=== PATIENT | female | born 1955 | race Caucasian/White ===

== ENCOUNTER → 2016-09-12 | Outpatient (CLI) | payer OTHER ==
--- NOTE | 2016-09-12 12:25 | RAD ---
DATE: 09/12/16 EXAM: MAMMO LEONEL DIAG LT, BREAST LEFT HISTORY: Abnormal screening mammogram COMPARISON: Screening mammogram from 02/21/15, subsequence left breast mammogram from 02/24/15 and diagnostic left mammogram from 08/05/15. Diagnostic bilateral mammogram from 02/06/16 was also reviewed This study was interpreted with the benefit of Computerized Aided Detection (CAD). TECHNIQUE: 2-D and 3-D CC and MLO views of the left breast and targeted sonographic evaluation of the left breast FINDINGS: Diagnostic left mammogram: Scattered fibroglandular densities are seen in the left breast There is a well-defined tiny subcentimeter nodule in the outer left breast as was seen previously. No additional nodularity architectural distortion is seen. Ultrasound to follow. Left breast ultrasound discussion: Targeted sonographic evaluation of the left breast is performed in the outer left breast. There is a well-defined 1.5 x 1.2 x 1.2 mm cyst at 3:00 position, 3 cm from the nipple. This was not previously identified. There is a ovoid hypoechoic nodule measuring 5.4 x 4.1 x 1.6 mm at 3:00 position, 4 cm from the nipple. This is stable since previous study. IMPRESSION: Stable mammographic nodule seen in the left outer breast. Stable Hypoechoic ovoid 5.4 x 4.1 x 1.6 mm nodule at 3:00 position in the left breast New tiny 1.5 x 1.2 x 1.2 mm cyst at 3:00 position, 3 cm from the nipple. Benign findings. Six-month follow-up bilateral mammogram would place the patient on routine annual schedule. BI-RADS CATEGORY: 2 BENIGN FINDING(S) RECOMMENDED FOLLOW-UP: 6M 6 MONTH FOLLOW-UP PQRS compliance statement: Patient information was entered into a reminder system with a target due date for the next mammogram. Mammography is a sensitive method for finding small breast cancers, but it does not detect them all and is not a substitute for careful clinical examination. A negative mammogram does not negate a clinically suspicious finding and should not result in delay in biopsying a clinically suspicious abnormality. "Our facility is accredited by the [employer] Mammography [employer]."
== END | disposition home or self-care (01) ==
LOC: MAMMO 09:56
PROVIDERS: ATTEND Nurse Practitioner Family
DX: N63 Unspecified lump in breast (principal)
CPT/HCPCS: 76641; G0206; G0279; 77061; 77065

== ENCOUNTER → 2017-02-11 | Outpatient (CLI) | payer OTHER ==
--- NOTE | 2017-02-11 15:03 | RAD ---
DATE: 02/11/17 EXAM: MAMMO LEONEL SCREENING BILATERAL, family history of breast cancer HISTORY: Routine screening COMPARISON: Bilateral screening mammogram from 02/06/16 This study was interpreted with the benefit of Computerized Aided Detection (CAD). TECHNIQUE: Routine 2-D and 3-D screening mammogram of both breasts are obtained FINDINGS: Breast Density: SCATTERED The breast parenchyma shows scattered fibroglandular densities. Breast parenchyma level B. . No suspicious clustered microcalcifications, focal asymmetric densities or masses are seen. Stable benign calcifications are seen in both breasts. The skin and nipples are intact IMPRESSION: Benign findings BI-RADS CATEGORY: 2 BENIGN FINDING(S) RECOMMENDED FOLLOW-UP: 12M 12 MONTH FOLLOW-UP PQRS compliance statement: Patient information was entered into a reminder system with a target due date for the next mammogram. Mammography is a sensitive method for finding small breast cancers, but it does not detect them all and is not a substitute for careful clinical examination. A negative mammogram does not negate a clinically suspicious finding and should not result in delay in biopsying a clinically suspicious abnormality. "Our facility is accredited by the [employer] Mammography [employer]."
== END | disposition home or self-care (01) ==
LOC: MAMMO 09:27
PROVIDERS: ATTEND Nurse Practitioner Family
DX: Z12.31 Encounter for screening mammogram for malignant neoplasm of breast (principal)
CPT/HCPCS: 77063; G0202; 77067

== ENCOUNTER → 2018-02-27 | Outpatient (CLI) | payer OTHER ==
--- NOTE | 2018-02-28 10:50 | RAD ---
DATE: 02/27/2018 EXAM: MAMMO LEONEL SCREENING BILATERAL HISTORY: Routine screening COMPARISON: 02/11/2017 This study was interpreted with the benefit of Computerized Aided Detection (CAD). Breast Density: SCATTERED The breast parenchyma shows scattered fibroglandular densities. Breast parenchyma level B. FINDINGS: 2-D and 3-D tomosynthesis imaging was performed in CC and MLO projections. No new or enlarging breast densities are seen. Benign type calcifications are present. No suspicious microcalcifications have developed. IMPRESSION: Stable mammograms without evidence of malignancy. BI-RADS CATEGORY: 2 BENIGN FINDING(S) RECOMMENDED FOLLOW-UP: 12M 12 MONTH FOLLOW-UP PQRS compliance statement: Patient information was entered into a reminder system with a target due date for the next mammogram. Mammography is a sensitive method for finding small breast cancers, but it does not detect them all and is not a substitute for careful clinical examination. A negative mammogram does not negate a clinically suspicious finding and should not result in delay in biopsying a clinically suspicious abnormality. "Our facility is accredited by the [employer] Mammography [employer]."
== END | disposition home or self-care (01) ==
LOC: MAMMO 09:27
PROVIDERS: ATTEND Physician Assistant Medical
DX: Z12.31 Encounter for screening mammogram for malignant neoplasm of breast (principal)
CPT/HCPCS: 77063; 77067

== ENCOUNTER → 2018-08-27 | Outpatient (CLI) | payer OTHER ==
--- NOTE | 2018-08-27 14:16 | RAD ---
7 views lumbar spine without comparison for lumbar back pain, right sciatica, lumbago. FINDINGS: There is no fracture or acute osseous or alignment abnormality of lumbar spine. Severe degenerative changes are seen at L5-S1 with vacuum phenomenon and bulky facet arthrosis. Moderate changes are seen at L4-5. Vacuum phenomenon also present at T11-12 and T12-L1. Alignment is maintained in flexion and extension. Oblique views reveal intact pars interarticulari bilaterally. There is aortoiliac atherosclerosis. IMPRESSION: 1. No acute osseous or alignment abnormality of the lumbar spine. 2. Severe degenerative changes at L5-S1. 3. Aortoiliac atherosclerosis. Electronically signed by: Peter Cash MD (08/27/2018 2:13 PM) [id number]
== END | disposition home or self-care (01) ==
LOC: RAD 09:44
PROVIDERS: ATTEND Chiropractor
DX: M47.817 Spondylosis without myelopathy or radiculopathy, lumbosacral region (principal); I70.0 Atherosclerosis of aorta; M99.03 Segmental and somatic dysfunction of lumbar region
CPT/HCPCS: 72114

== ENCOUNTER → 2019-03-17 | Outpatient (CLI) | payer OTHER ==
--- NOTE | 2019-03-18 08:23 | RAD ---
DATE: 03/17/2019 EXAM: MAMMO LEONEL SCREENING BILATERAL HISTORY: Routine screening COMPARISON: 09/12/2016, 02/11/2017, 02/27/2018 mammographic exams This study was interpreted with the benefit of Computerized Aided Detection (CAD). Breast Density: SCATTERED The breast parenchyma shows scattered fibroglandular densities. Breast parenchyma level B. FINDINGS: No suspicious calcifications, masses, or distortion. There is a small asymmetry at the posterior aspect of the left inner breast on CC projection measuring up to 0.3 cm in diameter located 8.5 cm from the nipple. This may are present summation of breast parenchyma. IMPRESSION: Small new asymmetry at the posterior left inner breast. BI-RADS CATEGORY: 0 INCOMPLETE: NEEDS ADDITIONAL IMAGING EVALUATION AND/OR PRIOR MAMMOGRAMS FOR COMPARISON. RECOMMENDED FOLLOW-UP: ADD ADDITIONAL IMAGING. Spot compression of the left posterior inner breast in the CC projection recommended. Ultrasound may be needed. PQRS compliance statement: Patient information was entered into a reminder system with a target due date for the next mammogram. Mammography is a sensitive method for finding small breast cancers, but it does not detect them all and is not a substitute for careful clinical examination. A negative mammogram does not negate a clinically suspicious finding and should not result in delay in biopsying a clinically suspicious abnormality. "Our facility is accredited by the [employer] Mammography [employer]."
== END | disposition home or self-care (01) ==
LOC: MAMMO 09:46
PROVIDERS: ATTEND Physician Assistant Medical
DX: Z12.31 Encounter for screening mammogram for malignant neoplasm of breast (principal); N64.89 Other specified disorders of breast
CPT/HCPCS: 77063; 77067

== ENCOUNTER → 2019-03-31 | Outpatient (CLI) | payer OTHER ==
--- NOTE | 2019-04-01 18:54 | RAD ---
Study: 1. 2-D digital diagnostic mammography-left breast 2. Left breast diagnostic ultrasound INDICATION: Follow-up evaluation of a left breast asymmetry. COMPARISON: Screening mammogram 03/17/2019. TECHNIQUE: 2-D digital spot compression diagnostic views were obtained of the left breast. Subsequently, diagnostic left breast sonography was performed. FINDINGS: Breast Tissue Density B :The breast tissue is composed of mixed fatty and fibroglandular tissue. Upon spot compression, a very small mass persists within the posterior aspect the left breast at approximately the 10:00 location. This will be further evaluated with sonography. Targeted sonography is performed of the left breast between 8 and 10:00. Approximately 6 cm from the nipple, a rounded, avascular, hypoechoic focus is identified that measures up to 10 mm. Though more superficial in location relative to the mammographic finding, this likely represents the finding due to its size and configuration. The sonographic appearance in conjunction with the mammogram appearance is not concerning for malignancy. IMPRESSION: No mammographic or sonographic finding within the evaluated left breast that is concerning for malignancy. BI-RADS Category 2: Benign. Recommendation: Routine screening mammography in one year. Patient information is entered into the reminder system with a target due date for the next screening mammogram. The patient will receive a reminder. "Our facility is accredited by the [employer] Mammography Program."
== END | disposition home or self-care (01) ==
LOC: MAMMO 13:49
PROVIDERS: ATTEND Physician Assistant Medical
DX: R92.8 Other abnormal and inconclusive findings on diagnostic imaging of breast (principal)
CPT/HCPCS: 76641; 77065

== ENCOUNTER → 2019-04-08 | Outpatient (CLI) | payer OTHER ==
--- NOTE | 2019-04-08 10:13 | RAD ---
EXAM: Lumbar spine, 3 views. HISTORY: Pain. COMPARISON: None. FINDINGS: 3 views of the lumbar spine are obtained. There is instrumented posterior spinal fusion and laminectomy decompression at L4-L5. There is grade 1 anterolisthesis at this level. There is degenerative endplate remodeling with disc space narrowing, osteophytosis and vacuum phenomenon at L5-S1. There is endplate Schmorl's node formation at multiple thoracic and upper and mid and lumbar levels. There is advanced facet arthropathy at the lumbosacral junction. IMPRESSION: 1. Instrumented fusion at L4-L5. There is grade 1 anterolisthesis at this level. 2. Multilevel degenerative change, primarily at L5-S1. Electronically signed by: Pau Sanches MD (04/08/2019 10:10 AM) [facility]
== END | disposition home or self-care (01) ==
LOC: RAD 09:03
PROVIDERS: ATTEND Neurological Surgery
DX: M43.16 Spondylolisthesis, lumbar region (principal); M47.817 Spondylosis without myelopathy or radiculopathy, lumbosacral region; M46.87 Other specified inflammatory spondylopathies, lumbosacral region; Z98.1 Arthrodesis status
CPT/HCPCS: 72100

== ENCOUNTER → 2019-04-23 | Outpatient (CLI) | payer OTHER ==
--- NOTE | 2019-04-24 08:28 | RAD ---
Three-view left rib detail series and PA view chest x-ray Clinical indications: Left-sided chest pain. FINDINGS: No acute left rib fracture is evident. Chest x-ray demonstrates no acute lung infiltrate or pleural effusion or pulmonary edema or pneumothorax. The heart size and pulmonary vasculature and mediastinum and both dash are unremarkable. IMPRESSION: No acute left rib fracture. Electronically signed by: Julio César Lopez MD (04/24/2019 8:25 AM) [facility]
== END | disposition home or self-care (01) ==
LOC: DXRAD 17:04
PROVIDERS: ATTEND Registered Nurse
DX: R07.9 Chest pain, unspecified (principal)
CPT/HCPCS: 71101

== ENCOUNTER → 2020-03-18 | Outpatient (CLI) | payer MEDICARE, OTHER ==
--- NOTE | 2020-03-18 11:29 | RAD ---
DATE: 03/18/2020 9:30 AM EXAM: MAMMO LEONEL SCREENING BILATERAL HISTORY: Screening COMPARISON: 03/17/2019 Bilateral CC and MLO views of the breasts were performed. Bilateral breast tomosynthesis was performed in CC and MLO projections. This study was interpreted with the benefit of Computerized Aided Detection (CAD). FINDINGS: Breast Density: SCATTERED The breast parenchyma shows scattered fibroglandular densities. Breast parenchyma level B No suspicious masses, microcalcifications or architectural distortion is present to suggest malignancy in either breast. The visualized axillae are unremarkable. IMPRESSION: No mammographic evidence of malignancy. BI-RADS CATEGORY: 1 NEGATIVE RECOMMENDED FOLLOW-UP: 12M 12 MONTH FOLLOW-UP Annual screening mammography is recommended, unless clinically indicated sooner based on symptoms or change in physical exam. PQRS compliance statement: Patient information was entered into a reminder system with a target due date for the next mammogram. Mammography is a sensitive method for finding small breast cancers, but it does not detect them all and is not a substitute for careful clinical examination. A negative mammogram does not negate a clinically suspicious finding and should not result in delay in biopsying a clinically suspicious abnormality. "Our facility is accredited by the [employer] Mammography Program."
== END ==
LOC: MAMMO 09:08
PROVIDERS: ATTEND Physician Assistant Medical
DX: Z12.31 Encounter for screening mammogram for malignant neoplasm of breast (principal)
CPT/HCPCS: 77063; 77067

== ENCOUNTER → 2020-12-14 | Outpatient (CLI) | payer MEDICARE, OTHER ==
--- NOTE | 2020-12-14 17:14 | RAD ---
XR LUMBAR SPINE 4+V 12/14/2020 5:04 PM Reason: LOW BACK PAIN WITH LEFT LEG RADICULOPATHY Comparison: Lumbar spine 04/08/2019 Technique: AP, obliques, lateral lumbosacral views lumbar spine. Findings: There are 5 nonrib-bearing vertebral bodies in the lumbar spine. Redemonstration of posterior manuel and screw fixation at the L4-L5 level. There is an interval 20 percent height loss of the L4 vertebral b velasquez. There is also interval 20 percent height loss of the anterior L2 vertebral body. No definite ret ropulsed fragment. Similar grade 1 anterolisthesis at L4-L5. Grade 1 retrolisthesis of L3 on L4. Rede monstration of left hemilaminectomy at L4-L5. Similar degenerative disc space narrowing and marginal osteophytosis throughout the lumbar spine. Similar facet joint hypertrophic change. Impression: 1. Interval 20 percent height loss of the anterior L2 and L4 vertebral bodies representing age indete rminant compression fractures. MRI of the lumbar spine could help determine chronicity. 2. New grade 1 retrolisthesis of L3 on L4. Electronically signed by: Franklin Lira (12/14/2020 5:12 PM) [id number]
== END ==
LOC: RAD 13:50
PROVIDERS: ATTEND Physician Assistant Medical
DX: M43.16 Spondylolisthesis, lumbar region (principal); M48.56XA Collapsed vertebra, not elsewhere classified, lumbar region, initial encounter for fracture; M48.061 Spinal stenosis, lumbar region without neurogenic claudication; M25.78 Osteophyte, vertebrae
CPT/HCPCS: 72110

== ENCOUNTER 2021-03-25 20:03 | Emergency (ER) | payer MEDICARE, OTHER ==
[~2021-03-25] VITALS: Ht 165.1 cm; Wt 82.0 kg
--- NOTE | 2021-03-25 20:05 | PHYS DOC ---
General Adult HPI: HPI: ".. I ve had this cough.. it will not go away.. I seen my Gloria.. and went back again to day they started me on antibiotic... for UTI... but this cough will not stop.... they had me on prednisone.. that usually helps..." Patient is a 66 year old female who presents with above hx and complaints dyspnea, cough Pt. Follows with Gloria. Patient has completed COVID vaccinations with a booster.. Has had flu vaccination as well. Patient c urrently on prednisone, amoxicillin, and Tessalon Perles. Patient does however continue to smoke. Patient has had a history of past COPD exacerbations. No recent travel. No severe ill contacts. Review of Systems: Review of Systems: Constitutional: Subjective complaints of fever or chills Eyes: Denies change in visual acuity HENT: History of nasal congestion and a sore throat from too much coughing Respiratory: History of nonproductive cough and shortness of breath Cardiovascular: Denies chest pain or edema GI: Denies abdominal pain, nausea, vomiting, bloody stools or diarrhea : Denies dysuria Musculoskeletal: Denies back pain or joint pain Integument: Denies rash Neurologic: Denies headache, focal weakness or sensory changes Endocrine: Denies polyuria or polydipsia Lymphatic: Denies swollen glands Psychiatric: Denies depression or anxiety Family History: Family History: Noncontributory to presentation Current Medications: Current Meds: See nursing for home medications Allergies: Allergies: No known drug allergies Physical Exam: PE: Constitutional: Moderate acute distress, non-toxic appearance. [] HENT: Normocephalic, atraumatic, bilateral external ears normal, oropharynx moist, posterior nasal drainage, no oral exudates, nose swollen turbinates and clear rhinorrhea. Interests Eyes: PERRLA, EOMI, conjunctiva normal, no discharge. [] Neck: Normal range of motion, no tenderness, supple, no stridor. [] Cardiovascular:Heart rate regular rhythm, no murmur [] tachycardia, PMI to left Lungs & Thorax: Bilateral breath sounds equal apex with scattered wheezing throughout on auscultation [] Abdomen: Bowel sounds normal, soft, no tenderness, no masses, no pulsatile masses. Obese. Skin: Warm, dry, no erythema, no rash. Poor turgor. Back: No tenderness, no CVA tenderness. [] Extremities: No tenderness, no cyanosis, no clubbing, ROM intact, no edema. [No cording appreciated in legs Neurologic: Alert and oriented X 3, normal motor function, normal sensory function, no focal deficits noted. [] Psychologic: Affect anxious, judgement normal, mood normal. [] EKG: EKG: My interpretation EKG shows a sinus rhythm at 85 bpm. No acute morphology. Does have left axis deviation. Time of this EKG is 2137 hrs. [] Radiology/Procedures: Radiology/Procedures: [][address] [address] IMAGING REPORT Signed PATIENT: ISAIAH KEENANOUNT: [id number] : 1955 LOCATION: ER AGE: 66 SEX: F EXAM STATUS: PRE ER ORD. PHYSICIAN: KRISTA ROBERSON MD REASON: dyspneas PROCEDURE: PORTABLE CHEST 1V AP chest. HISTORY: Dyspnea AP view was taken of the chest. There is mild atelectasis at the left costophrenic angle or minimal infiltrate. No other infiltrate is noted. Heart is normal in size. There is no effusion. IMPRESSION: 1. Mild atelectasis or infiltrate near the left gastric angle. 2. No other acute infiltrates. Electronically signed by: Luke Delacruz MD (03/25/2021 9:29 PM) [facility] DICTATED AND SIGNED BY: LUKE DELACRUZ MD DATE: 03/25/212127 CC: KRISTA ROBERSON MD; JORGE LAMB ~MTH0 0 Heart Score: C/O Chest Pain: No HEART Score for Chest Pain: HEART Score for Chest Pain Response (Comments) Value History Slighlty/Non-Suspicious 0 ECG Normal 0 Age > 65 2 Risk Factors 1 or 2 Risk Factors 1 Troponin < Normal Limit 0 Total 3 Risk Factors: Risk Factors: DM, Current or recent (<one month) smoker, HTN, HLP, family history of CAD, obesity. Risk Scores: Score 0 - 3: 2.5% MACE over next 6 weeks - Discharge Home Score 4 - 6: 20.3% MACE over next 6 weeks - Admit for Clinical Observation Score 7 - 10: 72.7% MACE over next 6 weeks - Early Invasive Strategies Course & Med Decision Making: Course & Med Decision Making Pertinent Labs and Imaging studies reviewed. (See chart for details) Discussed presentation, testing and tx. plan with patient. Patient elects not to be admitted if at all possible. Patient is going to go home on his Zithromax 250 mg daily for 5 days. Continue her prednisone continue her Bactrim. Follow-up primary care. Return if any concerns. Patient presents COVID precautions. Wear a mask covering nose and mouth at all times. Must return if no improvement. May need admission of IV antibiotics if no improvement. Return if any concerns. Patient strongly encouraged to stop smoking. Impression: 1. COPD exacerbation 2. Lt. Lower Pneumonia 3. Elevated Segs=74 4. Tobacco use [] Dragon Disclaimer: Dragon Disclaimer: This electronic medical record was generated, in whole or in part, using a voice recognition dictation system. Departure Departure: Referrals: JORGE LAMB (PCP) Scripts Azithromycin (ZITHROMAX) 250 Mg Tablet 250 MG PO DAILY for ANTI-BIOTIC for 5 Days, #5 TAB 0 Refills Prov: KRISTA ROBERSON MD 03/25/21 Dragon Disclaimer This chart was dictated in whole or in part using Voice Recognition software in a busy, high-work load, and often noisy Emergency Department environment. It may contain unintended and wholly unrecognized errors or omissions. KRISTA ROBERSON MD Mar 25, 2021 20:05
[2021-03-25] MEDS ORDERED: IV RINGERS SOLUTION,LACTATED 1,000 ML IV SCH (20:15)
[2021-03-25 21:26] LABS: BASO # 0.1 x10^3/uL (0.0-0.2); BASO % 1 % (0-3); EOS % 0 % (0-3); HEMATOCRIT 41.2 % (36.0-47.0); HEMOGLOBIN 13.9 g/dL (12.0-15.5); LYMPH # 1.7 x10^3/uL (1.0-4.8); LYMPH % 16 % (24-48); MEAN CORPUSCULAR HEMOGLOBIN 30 pg (25-35); MEAN CORPUSCULAR HGB CONC 34 g/dL (31-37); MEAN CORPUSCULAR VOLUME 90 fL (79-100); MONO # 0.5 x10^3/uL (0.0-1.1); MONO % 5 % (0-9); NEUT # 8.3 x10^3uL (1.8-7.7); NEUT % 78 % (31-73); PLATELET COUNT 278 x10^3/uL (140-400); RED BLOOD COUNT 4.59 x10^6/uL (3.50-5.40); RED CELL DISTRIBUTION WIDTH 14.4 % (11.5-14.5); WHITE BLOOD COUNT 10.6 x10^3/uL (4.0-11.0)
--- NOTE | 2021-03-25 21:31 | RAD ---
AP chest. HISTORY: Dyspnea AP view was taken of the chest. There is mild atelectasis at the left costophrenic angle or minimal i nfiltrate. No other infiltrate is noted. Heart is normal in size. There is no effusion. IMPRESSION: 1. Mild atelectasis or infiltrate near the left gastric angle. 2. No other acute infiltrates. Electronically signed by: Luke Delacruz MD (03/25/2021 9:29 PM) [facility]
[2021-03-25 21:35] LABS: CALCIUM 8.8 mg/dL (8.5-10.1); CREATININE 0.5 mg/dL (0.6-1.0); GFR 123.4; POTASSIUM 3.7 mmol/L (3.5-5.1)
[2021-03-25 21:37] LABS: AMPHETAMINE/METHAMPHETAMINE NEG (NEG); BARBITURATES NEG (NEG); BENZODIAZEPINES NEG (NEG); CANNABINOIDS NEG (NEG); COCAINE NEG (NEG); METHADONE NEG (NEG); OPIATES NEG (NEG); PHENCYCLIDINE NEG (NEG)
[2021-03-25 21:40] LABS: CLARITY,URINE CLEAR; COLOR,URINE YELLOW
[2021-03-25 21:41] LABS: BACTERIA,URINE FEW /HPF (0-FEW); BILIRUBIN,URINE NEG (NEG); GLUCOSE,URINE NEG (NEG); NITRITE,URINE NEG (NEG); SQUAMOUS EPITHELIAL CELL,UR MOD /LPF; UROBILINOGEN,URINE 0.2 mg/dL (0.2 mg/dL)
[2021-03-25 21:48] LABS: ALBUMIN 3.7 g/dL (3.4-5.0); DIRECT BILIRUBIN 0.1 mg/dL (0.0-0.2); TOTAL BILIRUBIN 0.3 mg/dL (0.2-1.0); TOTAL PROTEIN 6.5 g/dL (6.4-8.2)
[2021-03-25 21:49] LABS: INFLUENZA A PATIENT NEGATIVE (NEGATIVE); INFLUENZA B PATIENT NEGATIVE (NEGATIVE)
[2021-03-25 21:56] LABS: % BANDS 5 % (0-9); % BASOS 1 % (0-3); % LYMPHS 15 % (24-48); % MONOS 5 % (0-10); % SEGS 74 % (35-66); PLT ESTIMATE ADEQUATE (ADEQUATE)
[2021-03-25 22:18] VITALS: BP 106/68
--- NOTE | 2021-03-25 22:22 | EKG ---
[address] [address] Test Date: 2021-03-25 Test Time: 21:37:47 Pat Name: ISAIAH KEENAN Department: Room: Gender: F Rug Inspector: : 1955 Requested By: KRISTA ROBERSON Order Number: [id number] Reading MD: Cody Padron Measurements Intervals [place] Rate: 85 P: -41 [place]: 150 QRS: -8 QRSD: 92 T: 63 QT: 388 QTc: 462 Interpretive Statements SINUS RHYTHM LEFTWARD AXIS Electronically Signed On 03-26-2021 7:12:25 FIELD PIPELINES SUPERVISOR by Cody Padron
[2021-03-25] MEDS ORDERED: AZIT250T PO (22:38)
[2021-03-25] MEDS ORDERED: AZITHROMYCIN 250 MG TABLET. PO ONE (23:00)
[2021-03-25] MEDS ORDERED: methylPREDNISolone SOD SUCC PF 125 MG/2 ML VIAL. IV ONE (23:00)
== END 2021-03-25 22:50 | disposition home or self-care (01) ==
LOC: ER 20:03
DX: J44.1 Chronic obstructive pulmonary disease with (acute) exacerbation (principal); J18.9 Pneumonia, unspecified organism; D72.828 Other elevated white blood cell count; Z72.0 Tobacco use; Z20.822 Contact with and (suspected) exposure to COVID-19
CPT/HCPCS: 71045; 80048; 80076; 80307; 81001; 82550; 83690; 83735; 83880; 84443; 84484; 85007; 85025; 85379; 85610; 85730; 87040; 87426; 87804; 93005; 96361; 96374; 99285; C9803; J2930; J7120; U0003

== ENCOUNTER → 2021-04-17 | Outpatient (CLI) | payer MEDICARE, OTHER ==
[2021-03-25 22:18] VITALS: BP 106/68
[~2021-04-17] MED LIST: AZIT250T PO
--- NOTE | 2021-04-18 10:48 | RAD ---
Bilateral digital screening 2-D and 3-D (digital breast tomosynthesis) mammogram: Reason for examination: Routine screening. Comparison: Mammograms from 03/17/2019 and 03/18/2020. Interpretation was made with the benefit of CAD. FINDINGS: Breast density: Category B. There are scattered areas of fibroglandular density. No suspicious breast mass, malignant appearing calcifications, or architectural distortion is seen. IMPRESSION: No evidence of malignancy. Assessment: BI-RADS 1. Negative. Recommendation: Routine screening mammograms. The patient will receive a letter with the results in the mail. Patient information will be entered i nto the mammography reminder system with a target recall date for the next mammogram. A reminder lemuel er will be generated. Electronically signed by: Andie Bean MD (04/18/2021 10:45 AM) [id number]
== END ==
LOC: MAMMO 11:21
PROVIDERS: ATTEND Physician Assistant Medical
DX: Z12.31 Encounter for screening mammogram for malignant neoplasm of breast (principal)
CPT/HCPCS: 77063; 77067

== ENCOUNTER 2021-04-30 11:21 | Emergency (ER) | payer MEDICARE, OTHER ==
[~2021-04-30] VITALS: Ht 165.1 cm; Wt 82.0 kg
[2021-04-30 11:21] VITALS: BP 151/87
--- NOTE | 2021-04-30 11:53 | PHYS DOC ---
Past History Past Medical History: Hypertension Past Surgical History: Lumbar Laminectomy, Tonsillectomy, Other Additional Past Surgical Histo: CATARACTS, L SHOULDER Alcohol Use: Occasionally Adult General Chief Complaint Chief Complaint: MECHANICAL FALL HPI HPI Patient is a 66-year-old female presenting status post fall. Reports onset was 3 days ago, with caring household items and bilateral upper extremities when she suffered a mechanical fall forwards landing on right anterior face. Reports she did not lose consciousness, no nausea or vomit, change in vision or other concerning symptoms but patient does report suffering from a nosebleed that resolved with direct pressure after 10 minutes. States she has been icing it ever since with use of Tylenol with moderate improvement in pain and swelling. Nonetheless, ongoing pain, development of a black eye and red eye on the right side concerned her for potential head and/or maxillofacial injury requiring further intervention. She has history of high blood pressure for which she is on an EDUAR inhibitor, no other known medical issues, no blood thinning medications. She has no change in motor or sensory or neuro function Review of Systems Review of Systems Fourteen body systems of review of systems have been reviewed. See HPI for pertinent positives and negative responses, other nation all other systems are negative, non-pertinent or non-contributory Allergies Allergies Allergies Coded Allergies Type Severity Reaction Last Updated Verified No Known Drug Allergies 03/25/21 No Physical Exam Physical Exam Constitutional: Well developed, well nourished, no acute distress, non-toxic appearance. HENT: Normocephalic, patient does have obvious right ocular trauma with mild s oft tissue edema and ecchymosis around orbit without any palpable depressions or abnormalities, bilateral external ears normal, no blake sign, oropharynx moist, no oral exudates, nose normal. Eyes: PERRLA, EOMI, right eye subconjunctival hemorrhage present, no discharge. Neck: Normal range of motion, no tenderness, supple, no stridor. Cardiovascular: Heart rate regular, sinus rhythm, no murmurs rubs or gallops Lungs & Thorax: Bilateral breath sounds clear to auscultation Abdomen: Bowel sounds normal, soft, no tenderness, no masses, no pulsatile masses. Nonsurgical abdomen, no peritoneal signs Skin: Warm, dry, no erythema, no rash. Back: No tenderness, no CVA tenderness. Extremities: No tenderness, no cyanosis, no clubbing, ROM intact, no edema. Neurologic: Alert and oriented X 3, cranial nerves II through XII intact, normal motor & sensory function, no focal deficits noted. Psychologic: Affect normal, judgement normal, mood normal. Current Patient Data Vital Signs Vital Signs Date Time Temp Pulse Resp B/P (MAP) Pulse Ox O2 Delivery O2 Flow Rate FiO2 04/30/21 11:21 98.4 87 18 151/87 (108) 97 Room Air Vital Signs Date Time Temp Pulse Resp B/P (MAP) Pulse Ox O2 Delivery O2 Flow Rate FiO2 04/30/21 11:21 98.4 87 151/87 (108) 97 04/30/21 11:21 18 Room Air EKG EKG [] Radiology/Procedures Radiology/Procedures CT Head W/O Contrast: History: Reason: FALL, RIGHT ORBITAL BRUISING, SWELLING, RT FACIAL NUMBNESS / Spl. Instructions: / History: Comparison: none Axial images were obtained without contrast. The pierson and white matter appears normal and symmetrical for the patients age. There is no mass effect, extraaxial fluid collections or hydrocephalus. There is no gross bleed. There is no focal loss of pierson-white matter distinction to suggest acute ischemia, i.e. stroke. Impression: No acute findings. End of impression CT maxillofacial without contrast Axial helical images of the face were obtained without contrast. Axial, coronal and coronal reconstruction was performed. FINDINGS: There is a 5 mm depressed fracture of the floor of the right orbit. There is a fracture of the lateral wall of the right orbit which anteriorly is depressed. The nasal septum is mildly deviated to the right. The ostiomeatal complex is occluded on the right and the right maxillary sinus is mostly opacified with blood. The paranasal sinuses are clear. The visualized osseous structures appear intact. The orbits appear normal. Impression: 1. Depressed fracture of the right orbital floor. There is no CT evidence of entrapment however clinical correlation suggested. 2. Fracture of the lateral wall of the right maxillary sinus and near opacification of the right maxillary sinus with blood. Heart Score C/O Chest Pain: No Risk Factors: Risk Factors: DM, Current or recent (<one month) smoker, HTN, HLP, family history of CAD, obesity. Risk Scores: Risk Factors: DM, Current or recent (<one month) smoker, HTN, HLP, family history of CAD, obesity. Course & Med Decision Making Course & Med Decision Making ABCs unremarkable HPI physical exam and comprehensive ER work-up concerning for depressed right orbit and right maxillary fractures [facility] maxillofacial surgeon contacted and case reviewed, no need for emergent transfer for immediate intervention but close outpatient follow-up is advised with supportive care practices and pain control recommended I updated patient on entirety of ER work-up, findings, and discussion with maxillofacial surgeon with good understanding. She was amenable to plan of care as stated. Denied any narcotic pain medications to go home on. Patient discharged with strict return precautions Dragon Disclaimer Dragon Disclaimer This electronic medical record was generated, in whole or in part, using a voice recognition dictation system. Departure Departure: Impression: Primary Impression: Fall Additional Impressions: Right orbit fracture Maxillary sinus fracture Disposition: HOME / SELF CARE / HOMELESS Condition: STABLE Referrals: JORGE LAMB (PCP) Additional Instructions: As discussed prior to ER departure, your vitals physical exam and comprehensive ER work-up were nonconcerning for any emergent or surgical issues. I discussed your findings today that included depressed fracture of your right orbit in addition to fracture of right maxillary sinus. Your case was reviewed with maxillofacial surgeons at [facility] and joint decision among all to discharge you home with close outpatient follow-up. As such, it is pertinent that you contact their office first thing in the morning at [phone] to review ER visit today and need for close outpatient follow-up. Continue to provide supportive care practices to yourself that should include ice, ibuprofen and/or Tylenol for pain as needed. If any concerning signs or symptoms present prior to outpatient follow-up please do not hesitate to come back for repeat evaluation. It was a pleasure to take care of you and I wish you the best going forward Problem Qualifiers WENDIE WOODS DO Apr 30, 2021 11:53
--- NOTE | 2021-04-30 12:25 | RAD ---
CT Head W/O Contrast: History: Reason: FALL, RIGHT ORBITAL BRUISING, SWELLING, RT FACIAL NUMBNESS / Spl. Instructions: / H istory: Comparison: none Axial images were obtained without contrast. The pierson and white matter appears normal and symmetrical for the patients age. There is no mass effe ct, extraaxial fluid collections or hydrocephalus. There is no gross bleed. There is no focal loss of pierson-white matter distinction to suggest acute ischemia, i.e. stroke. Impression: No acute findings. End of impression CT maxillofacial without contrast Axial helical images of the face were obtained without contrast. Axial, coronal and coronal reconstru ction was performed. FINDINGS: There is a 5 mm depressed fracture of the floor of the right orbit. There is a fracture of the latera l wall of the right orbit which anteriorly is depressed. The nasal septum is mildly deviated to the right. The ostiomeatal complex is occluded on the right an d the right maxillary sinus is mostly opacified with blood. The paranasal sinuses are clear. The visu alized osseous structures appear intact. The orbits appear normal. Impression: 1. Depressed fracture of the right orbital floor. There is no CT evidence of entrapment however clini keon correlation suggested. 2. Fracture of the lateral wall of the right maxillary sinus and near opacification of the right maxi llary sinus with blood. End of impression PQRS Compliance Statement: One or more of the following individualized dose reduction techniques were utilized for this examinat ion: 1. Automated exposure control 2. Adjustment of the mA and/or kV according to patient size 3. Use of iterative reconstruction technique Electronically signed by: Jean Pierre Angulo III, MD (04/30/2021 12:23 PM) [facility]
== END 2021-04-30 14:08 | disposition home or self-care (01) ==
LOC: ER 11:21
DX: S02.85XA Fracture of orbit, unspecified, initial encounter for closed fracture (principal); S02.40CA Maxillary fracture, right side, initial encounter for closed fracture; I10 Essential (primary) hypertension; W18.39XA Other fall on same level, initial encounter; Y93.89 Activity, other specified; Y92.89 Other specified places as the place of occurrence of the external cause; Y99.8 Other external cause status
CPT/HCPCS: 70450; 70486; 99284

== ENCOUNTER 2021-07-13 17:08 | Emergency (ER) | payer MEDICARE, OTHER ==
[~2021-07-13] VITALS: Ht 165.1 cm; Wt 82.0 kg
[2021-07-13 17:08] VITALS: BP 145/84
[2021-07-13] MEDS ORDERED: CEPH500T PO (18:02)
--- NOTE | 2021-07-13 18:03 | PHYS DOC ---
Past History Past Medical History: Hypertension (YESSI HANKS APRN) Past Surgical History: Lumbar Laminectomy, Tonsillectomy, Other Additional Past Surgical Histo: CATARACTS, L SHOULDER (YESSI HANKS APRN) Alcohol Use: Occasionally (YESSI HANKS APRN) General Adult EDM: Chief Complaint: INSECT BITE HPI: HPI: Patient is a 66-year-old female who presents with bite to top of carrillo. Patient reports she noticed bite this morning. Denies pain. Some redness to the area. No drainage. Reports applying warm compress to the area. Denies needing anything for pain. Patient has full range of motion. Sensations intact. (YESSI HANKS APRN) Review of Systems: Review of Systems: ROS At least 10 ROS systems have been reviewed and are negative except as documented in the HPI. General: Negative except as outlined in HPI above. Skin: Negative except as outlined in HPI above. HEENT: Negative except as outlined in HPI above. Neck: Negative except as outlined in HPI above. Respiratory: Negative except as outlined in HPI above.. Cardiovascular: Negative except as outlined in HPI above. Abdomen: Negative except as outlined in HPI above. : Negative except as outlined in HPI above. Back/MSK: Negative except as outlined in HPI above. Neuro: Negative except as outlined in HPI above. Psych: Negative except as outlined in HPI above. (YESSI HANKS APRN) Allergies: Allergies: Allergies Coded Allergies Type Severity Reaction Last Updated Verified No Known Drug Allergies 03/25/21 No (YESSI HANKS APRN) Physical Exam: PE: Constitutional: Well developed, well nourished, no acute distress, non-toxic appearance. [] HENT: Normocephalic, atraumatic, bilateral external ears normal, oropharynx moist, no oral exudates, nose normal. [] Eyes: PERRLA, EOMI, conjunctiva normal, no discharge. [] Neck: Normal range of motion, no tenderness, supple, no stridor. [] Cardiovascular:Heart rate regular rhythm, no murmur [] Lungs & Thorax: Bilateral breath sounds clear to auscultation [] Abdomen: Bowel sounds normal, soft, no tenderness, no masses, no pulsatile masses. [] Skin: Redness to top of left carrillo, no tenderness, no drainage, no swelling Back: No tenderness, no CVA tenderness. [] Extremities: No tenderness, no cyanosis, no clubbing, ROM intact, no edema. [] Neurologic: Alert and oriented X 3, normal motor function, normal sensory fu nction, no focal deficits noted. [] Psychologic: Affect normal, judgement normal, mood normal. [] (YESSI HANKS APRN) Current Patient Data: Vital Signs: Vital Signs Date Time Temp Pulse Resp B/P (MAP) Pulse Ox O2 Delivery O2 Flow Rate FiO2 07/13/21 17:08 97.9 76 16 145/84 (104) 98 Room Air (YESSI HANKS APRN) EKG: EKG: [] (YESSI HANKS APRN) Radiology/Procedures: Radiology/Procedures: [] (YESSI HANKS APRN) Heart Score: C/O Chest Pain: No Risk Factors: Risk Factors: DM, Current or recent (<one month) smoker, HTN, HLP, family his tory of CAD, obesity. Risk Scores: Score 0 - 3: 2.5% MACE over next 6 weeks - Discharge Home Score 4 - 6: 20.3% MACE over next 6 weeks - Admit for Clinical Observation Score 7 - 10: 72.7% MACE over next 6 weeks - Early Invasive Strategies (YESSI HANKS APRN) Course & Med Decision Making: Course & Med Decision Making Pertinent Labs and Imaging studies reviewed. (See chart for details) [] 66-year-old female presents with bite to top of carrillo. Patient given Keflex. Advised patient to take in full and as directed. Patient's denying pain at this time. Advised patient to take ibuprofen and Tylenol if pain occurs. Advised patient to return if symptoms worsen. If she starts running a fever, uncontrollable pain. Patient reports she understands discharge instructions. (YESSI HANKS APRN) Dragon Disclaimer: Dragon Disclaimer: This electronic medical record was generated, in whole or in part, using a voice recognition dictation system. (YESSI HANKS APRN) Attending Co-Sign The patient was seen and interviewed as well as examined at the bedside. The chart was reviewed. The case was discussed. Agree with the plan of care. (BARBI JOSHI DO) Departure Departure: Impression: Primary Impression: Cellulitis Qualified Codes: L03.116 - Cellulitis of left lower limb Disposition: 01 HOME / SELF CARE / HOMELESS Condition: STABLE Referrals: JORGE LAMB (PCP) Patient Instructions: Cellulitis, [id number] Additional Instructions: You are seen in the emergency room for bite to left leg. Starting you on Keflex. If symptoms worsen please return to the emergency room. Symptoms should improve in the next 24 to 48 hours. Return to the emergency room if symptoms are worsening. EMERGENCY DEPARTMENT GENERAL DISCHARGE INSTRUCTIONS Thank you for coming to [facility] (ED) today and trusting us with you care. We trust that you had a positivie experience in our Emergency Department. If you wish to speak to the department management, you may call the director at [phone]. YOUR FOLLOW UP INSTRUCTIONS ARE FOLLOWS: 1. Do you have a private Doctor? If you do not have a private doctor, please ask for a resource list of physicians or clinics that may be able to assist you with follow up care. 2. The Emergency Physician has interpreted your x-rays. The X-Ray specialist will also review them. If there is a change in the findings, you will be notified in 48 hours when at all possible. 3. A lab test or culture has been done, your results will be reviewed and you will be notified if you need a change in treatment. ADDITIONAL INSTRUCTIONS AND INFORMATION: 1. Your care today has been supervised by a physician who is specially trained in emergency care. Many problems require more than one evaluation for a complete diagnosis and treatment. We recommend that you schedule your follow up appointment as recommended to ensure complete treatment of you illness or injury. If you are unable to obtain follow up care and continue to have a problem, or if your condition worsens, we recommend that you return to the ED. 2. We are not able to safely determine your condition over the phone nor are we able to give sound medical advice over the phone. For these safety reasons, if you call for medical advice we will ask you to come to the ED for further evaluation. 3. If you have any questions regarding these discharge instructions please call the ED at [phone]. SAFETY INFORMATION: In the interest of safety, wellness, and injury prevention; we encourage you to wear your sealbelt, if you smoke; quite smoking, and we encourage family to use a protective helmet for bicycling and other sporting events that present an increased risk for head injury. IF YOUR SYMPTOMS WORSEN OR NEW SYMPTOMS DEVELOP, OR YOU HAVE CONCERNS ABOUT YOUR CONDITION; OR IF YOUR CONDITION WORSENS WHILE YOU ARE WAITING FOR YOUR FOLLOW UP APPOINTMENT; EITHER CONTACT YOUR PRIMARY CARE DOCTOR, THE PHYSICIAN WHOSE NAME AND NUMBER YOU WERE GIVEN, OR RETURN TO THE ED IMMEDIATELY. Scripts Cephalexin (CEPHALEXIN) 500 Mg Tablet 1 TAB PO BID for cellulitis for 5 Days, #10 TAB Prov: YESSI HANKS APRN 07/13/21 YESSI HANKS APRN Jul 13, 2021 18:03 BARBI JOSHI DO Jul 14, 2021 11:21
== END 2021-07-13 18:08 | disposition home or self-care (01) ==
LOC: ER 17:08
DX: S80.862A Insect bite (nonvenomous), left lower leg, initial encounter (principal); L03.116 Cellulitis of left lower limb; I10 Essential (primary) hypertension; W57.XXXA Bitten or stung by nonvenomous insect and other nonvenomous arthropods, initial encounter; Y93.89 Activity, other specified; Y92.89 Other specified places as the place of occurrence of the external cause; Y99.8 Other external cause status
CPT/HCPCS: 99283

== ENCOUNTER → 2021-08-05 | Outpatient (CLI) | payer MEDICARE ==
[2021-07-13 17:08] VITALS: BP 145/84
[~2021-08-05] MED LIST changes: +CEPH500T PO
--- NOTE | 2021-08-05 09:15 | RAD ---
XR CHEST 2V Technique: PA and lateral views of the chest were obtained. Clinical History: Reason: LOWER RESPIRATORY INFECTION, PNEUMONIA/BRONCHITIS / Spl. Instructions: COUG H, SHORTNESS OF BREATH / History: Comparison: March 25, 2021. Findings: The heart and pulmonary vasculature appear within normal limits. Linear opacities in the lung bases are seen previously. The pleural margins are clear. The lungs are hyperinflated. Impression: Linear opacities in the lung bases could be discoid atelectasis or scar. Stable appearance of the joya st. Electronically signed by: Jean Pierre Angulo III, MD (08/05/2021 9:13 AM) [facility]
== END ==
LOC: PMG 08:47
PROVIDERS: ATTEND Nurse Practitioner Family
DX: R91.8 Other nonspecific abnormal finding of lung field (principal); J98.11 Atelectasis; J22 Unspecified acute lower respiratory infection
CPT/HCPCS: 71046

== ENCOUNTER → 2021-09-26 | Outpatient (CLI) | payer MEDICARE ==
--- NOTE | 2021-09-26 19:10 | RAD ---
EXAMINATION: Chest radiograph. VIEWS: 2 COMPARISON: 08/05/2021 INDICATION:66 years, Female, cough. FINDINGS: Normal cardiomediastinal silhouette. Ill-defined patchy airspace opacity in the right lower lobe. No pleural effusion or pneumothorax. No acute osseous process. Multilevel degenerative changes in the sp ine. IMPRESSION: Ill-defined patchy airspace opacity in the right lower lobe, differential includes atelectatic change s, pneumonia or aspiration. Electronically signed by: Shaheed Samuel MD (09/26/2021 7:07 PM) [facility]
== END ==
LOC: RAD 18:51
PROVIDERS: ATTEND Nurse Practitioner Family
DX: J98.11 Atelectasis (principal); J01.00 Acute maxillary sinusitis, unspecified; M47.814 Spondylosis without myelopathy or radiculopathy, thoracic region; Z68.29 Body mass index [BMI] 29.0-29.9, adult
CPT/HCPCS: 71046